=== PATIENT | female | born 1980 | race Caucasian/White ===

== ENCOUNTER → 2018-10-20 11:26 | Outpatient (CLI) | payer BC, SELFPAY ==
[2018-10-20 15:19] LABS: Chlamydia Trachomatis by PCR Negative (Negative); Neisserai gonorrhoeae by PCR Negative (Negative); Probe Check PASS; Sample Adequacy Control PASS; Specimen Processing Control PASS
[2018-10-22 11:30] LABS: HPV Reflexed? NOT INDICATED
== END ==
PROVIDERS: Visit Provider Obstetrics & Gynecology
DX: Z12.4 Encounter for screening for malignant neoplasm of cervix (principal); Z11.3 Encounter for screening for infections with a predominantly sexual mode of transmission
CPT/HCPCS: 87491; 87591; 88175; G0145

== ENCOUNTER → 2018-11-01 11:59 | Outpatient (CLI) | payer BC, SELFPAY ==
[2018-11-01 13:47] LABS: Absolute Lymphocyte Count 1.73 X10^3/ul (0.83-4.51); Absolute Neutrophil Count 5.6 X10^3/uL (2.0-7.7); Basophil# 0.01 X10^3/uL; Basophil% 0.1 % (0-1); Eosinophil# 0.08 X10^3/uL; Hematocrit 37.4 % (37-47); Hemoglobin 12.3 g/dl (12.0-15.0); Lymphocyte # 1.73 X10^3/ul (4.0); Mean Corp Hgb Conc 32.9 g/gl (32-36); Mean Corpuscular Hgb 28.7 pg (27.0-32.0); Mean Corpuscular Volume 87.2 fL (81-99); Mean Platelet Vol. 10.6 fl (6.2-12.0); Monocyte# 0.49 X10^3/uL; Monocyte% 6.2 % (0-10); Neutrophil # 5.55 X10^3/uL (2.7-7.7); Neutrophil % 70.6 % (47-70); POSITIVE COUNT NO; POSITIVE DIFFERENTIAL NO; POSITIVE MORPHOLOGY NO; Platelet Count 215 K/mm3 (150-450); RBC Distribution Width SD 41.3 fl (35.1-43.9); Red Blood Count 4.29 M/mm3 (4.2-5.4); White Blood Count 7.9 K/mm3 (4.4-11.0)
[2018-11-01 13:57] LABS: Color, Urine Yellow (Yellow); Glucose, Dipstick Normal (Normal); Ketone-Dipstick Negative (Negative); Leukocyte Esterase-Dipstick 25 /ul (Negative); Nitrite-Dipstick Negative (Negative); Occult Blood-Urine Negative /ul (Negative); Protein-Dipstick 15 mg/dl (Negative); Specific Gravity, Urine 1.025 (1.002-1.030); Urine Bilirubin Dipstick Negative (Negative); Urine Clarity Sl. Cloudy (Clear); Urine Urobilinogen Normal (Normal)
[2018-11-01 14:03] LABS: Thyroid Stim Hormone (TSH) 1.15 uIU/mL (0.358-3.74)
[2018-11-01 14:35] LABS: Amphetamine Urine VISTA NEGATIVE (<1000 ng/mL); Barbiturate Urine VISTA NEGATIVE (< 200 ng/mL); Benzodiazepine Urine VISTA NEGATIVE (< 200 ng/mL); Cocaine Urine VISTA NEGATIVE (< 300 ng/mL); Ecstacy Urine VISTA NEGATIVE (< 500 ng/mL); Methadone Urine VISTA NEGATIVE (< 300 ng/mL); PCP Urine VISTA NEGATIVE (< 25 ng/mL); THC Urine VISTA NEGATIVE (< 50 ng/mL); Vista UDS pH Range 5
[2018-11-01 14:43] LABS: HIV - WCH Non-Reactive (Nonreactive); Rubella IgG 35.3 IU/mL
[2018-11-02 17:15] LABS: HEPATITIS B SURFACE AG Negative (Negative); Hep C Antibodies <0.1 s/co ratio (0.0-0.9)
[2018-11-05 02:51] LABS: Prenatal RPR NONREACTIVE (NONREACTIVE)
== END ==
PROVIDERS: Visit Provider Obstetrics & Gynecology
DX: Z34.82 Encounter for supervision of other normal pregnancy, second trimester (principal)
CPT/HCPCS: 36415; 80307; 81002; 84443; 85025; 86703; 86762; 86803; 87340

== ENCOUNTER → 2019-01-24 | Outpatient (CLI) | payer BC, SELFPAY ==
[2019-01-24 11:14] LABS: Hematocrit 34.2 % (37-47); Hemoglobin 11.5 g/dl (12.0-15.0); Mean Corp Hgb Conc 33.6 g/gl (32-36); Mean Corpuscular Hgb 30.2 pg (27.0-32.0); Mean Corpuscular Volume 89.8 fL (81-99); Mean Platelet Vol. 10.6 fl (6.2-12.0); Platelet Count 188 K/mm3 (150-450); RBC Distribution Width CV 13.7 % (11.6-14.6); RBC Distribution Width SD 43.8 fl (35.1-43.9); Red Blood Count 3.81 M/mm3 (4.2-5.4); Scan Indicated on CBC? Y/N NO; White Blood Count 9.4 K/mm3 (4.4-11.0)
[2019-01-24 11:37] LABS: Glucose Challenge Gest 1H 50g 133 mg/dL (70-140)
== END | disposition home or self-care (01) ==
PROVIDERS: Visit Provider Obstetrics & Gynecology
DX: Z34.82 Encounter for supervision of other normal pregnancy, second trimester (principal)
CPT/HCPCS: 36415; 82950; 85027

== ENCOUNTER 2019-03-19 16:45 | Outpatient (CLI) | payer BC, SELFPAY ==
[2019-03-19 17:16] VITALS: BMI 35.0
--- NOTE | 2019-03-20 06:39 | OB.TRI.NOTE ---
History of Present Illness Date of Service: 03/19/19 Was patient seen by the physician?: No Reason For Visit: R/O LABOR Date of Service: 03/19/19 Final LEO: 04/18/19 Final LEO Source: US <20 weeks Gestational age: 35 Weeks and 6 Days History of Present Illness: 35+ week intrauterine presents with right lower quadrant and right sided abdominal pain which began earlier in the day. Patient reported some nausea and vomiting and inability to eat. Seem to be out of proportion to right round ligament pain. Allergies shellfish derived Adverse Reaction (Verified 03/19/19 17:57) Food Allergy Physical Exam Cervix Dilation (cm): 0 Station: -2 Effacement (%): 25 NST - FHR Rate Baby A NST Reactive:: Yes FHR Category:: Category I Impression/Plan 35+ week intrauterine with right lower quadrant pain. Reactive heart tones and no evidence of labor. Will send patient to emergency room to rule out appendicitis.
== END 2019-03-19 17:55 | disposition home or self-care (01) ==
PROVIDERS: Visit Provider Obstetrics & Gynecology
DX: O26.893 Other specified pregnancy related conditions, third trimester (principal); R10.31 Right lower quadrant pain; Z3A.35 35 weeks gestation of pregnancy; O99.613 Diseases of the digestive system complicating pregnancy, third trimester; K35.80 Unspecified acute appendicitis
CPT/HCPCS: 44950; 59025; 59050; 74176; 80048; 80076; 81001; 83690; 85025; 88304; 99218; 99285; J7030; J7120; A4216; G0378; J2405

== ENCOUNTER 2019-03-19 17:56 | Observation (INO) | payer BC, SELFPAY ==
[2019-03-19 17:16] VITALS: BMI 35.0
[2019-03-19 17:57] VITALS: BP 106/64; PULSE 105; RESP 18; TEMP 36.3; O2SAT 98; BMI 35.3
[2019-03-19 18:21] LABS: Color, Urine Yellow (Yellow); Glucose, Dipstick Normal (Normal); Leukocyte Esterase-Dipstick 25 /ul (Negative); Nitrite-Dipstick Negative (Negative); Occult Blood-Urine Negative /ul (Negative); Protein-Dipstick Negative (Negative); Red Blood Cells-Urine 0 SEEN /hpf (0-5); Urine Bilirubin Dipstick Negative (Negative); Urine Clarity Sl. Cloudy (Clear); Urine Urobilinogen Normal (Normal)
[2019-03-19 18:23] LABS: Ketone-Dipstick 150 mg/dl (Negative)
[2019-03-19 18:23] LABS: Absolute Lymphocyte Count 1.05 X10^3/uL (0.83-4.51); Absolute Neutrophil Count 10.4 X10^3/uL (2.0-7.7); Basophil# 0.02 X10^3/uL; Basophil% 0.2 % (0-1); Hematocrit 37.3 % (37-47); Hemoglobin 12.5 g/dL (12.0-15.0); Lymphocyte # 1.05 X10^3/ul (4.0); Lymphocyte % 8.7 % (19-41); Mean Corp Hgb Conc 33.5 g/dL (32-36); Mean Corpuscular Hgb 30.6 pg (27.0-32.0); Mean Corpuscular Volume 91.2 fL (81-99); Mean Platelet Vol. 10.8 fl (6.2-12.0); Monocyte# 0.53 X10^3/uL; Monocyte% 4.4 % (0-10); NRBC Flagged by Analyzer 0 % (0-5); Neutrophil # 10.41 X10^3/uL (2.7-7.7); Neutrophil % 86.3 % (47-70); Platelet Count 170 K/mm3 (150-450); RBC Distribution Width SD 42.9 fl (35.1-43.9); Red Blood Count 4.09 M/mm3 (4.2-5.4); White Blood Count 12.1 K/mm3 (4.4-11.0)
--- NOTE | 2019-03-19 18:24 | ED.RN ---
NOTE LEFT ON CHART REFERENCE KETONES IN URINE
[2019-03-19 18:33] LABS: Bacteria RARE /hpf (None Seen); Mucous, Urine RARE /hpf (<or=2+); Squamous Epithelial Cells - UA 0-5 SEEN /hpf (5-10); White Blood Cells 0-5 SEEN /hpf (0-5)
[2019-03-19 18:39] LABS: Anion Gap 8 (5-15); BUN 5 mg/dL (7-18); BUN/Creat Ratio 8.5 RATIO (10-20); Calcium,Total 8.4 mg/dL (8.5-10.1); Chloride 107 mmol/L (98-107); Creatinine, Serum 0.59 mg/dL (0.55-1.02); EST Glomerular Filtration Rate 123 mL/min (>60); Est Glom Filt Rate - Afr Amer 149 mL/min (>60); Glucose 79 mg/dL (74-106); Potassium 3.7 mmol/L (3.5-5.1); Sodium Level 136 mmol/L (136-145)
--- NOTE | 2019-03-19 18:59 | ED.VIS.GEN ---
History of Present Illness Chief Complaint: Abd Pain Informant: Patient Onset: Today Current Severity: Moderate Narrative: Patient is 3 5 weeks uncomplicated no vaginal bleeding or discharge with right-sided abdominal pain which she felt was if she was having contractions, she was seen by the OB triage at [facility] today and sent to the emergency department. She is having contractions but it was felt that these were not related to her pain she is having no vomiting no diarrhea normal bowel bladder habits, she has not been able to eat much today because of the pain, she has no history of abdominal surgeries kidney stones, went to bed feeling fine points to the basically the right side of the abdomen as the area of pain Past Medical History - Allergies and Home Meds Allergies/Adverse Reactions: Allergies shellfish derived Adverse Reaction (Verified 03/19/19 17:57) Food Allergy Past Medical History: - Smoking Status: Never smoker Review of Systems ROS: - Negative except as above General: Denies: Chills, Fever, Sweats Eyes: Denies: Visual changes - bilaterally, Diplopia ENT: Denies: Rhinorrhea, Sore throat Cardiovascular: Denies: Chest pain, Palpitations Respiratory: Denies: Dyspnea, Cough, Dyspnea on exertion Gastrointestinal: Reports: Abdominal pain. Denies: Nausea, Vomiting, Diarrhea, Melena, Hematochezia Genitourinary: Denies: Dysuria, Hematuria, Frequency Musculoskeletal: Denies: Back pain, Extremity Pain Skin: Denies: Rash, Wounds Neurological: Denies: Headache, Weakness, Numbness Physical Exam Vital Signs/Narrative: Vital Signs Temp Pulse Resp BP Pulse Ox 03/19/19 17:57 97.3 F L 105 H 18 106/64 98 General: Well nourished, Well developed, No Acute Distress Head: Normocephalic, Atraumatic Eyes: Perrl, EOMI ENT: Moist mucous membranes, No rhinorrhea Neck: Supple, Nontender Cardiovascular: Regular rate, Regular rhythm, No murmurs Respiratory: No distress, CTA bilaterally, Chest nontender Abdomen: Soft, Nondistended, Normal bowel sounds, Tender, - - She has tenderness to the right side of the abdomen and rather diffuse fashion there is no skin rash there is some guarding but no rebound Back: Nontender, Normal Inspection Extremities: Nontender, No edema Skin: Normal color, No rash Neurological: Alert, Oriented x3, Cranial nerves II-XII grossly intact, Normal Strength, Normal Sensation Psychological: Normal affect, Normal Mood Diagnostic/Tx/Re-eval - Medical Decision Making Spoke with Dr. Ellis her pharmacy operations manager application technical designer discussed case the patient her family this time given her pain her symptoms we will obtain CT of the abdomen to evaluate for appendicitis kidney stone or other acute conditions Lab results UA generally unremarkable see those reports CT scan of the abdomen shows findings consistent with acute appendicitis, I spoke with [facility]ER they asked that I consult Dr. Mcconnell discussed with the patient she agreed spoke with Dr. Mcconnell and he will be in to see the patient for further disposition and management Admit pending surgery eval Impression final 35 weeks , acute appendicitis surgery evaluation ED Disposition - Plan for ED Patient: Diagnosis: Acute appendicitis affecting
--- NOTE | 2019-03-19 19:04 | CT_ITS ---
STUDY: CT ABDOMEN AND PELVIS WITHOUT CONTRAST REASON FOR EXAM: Female, 39 years old. Right-sided abdominal pain with nausea, RADIATION DOSAGE (If Supplied By Facility): CTDIvol = ( 14.31 ) mGy, DLP = ( 665.08 ) mGycm TECHNIQUE: Transaxial images were obtained from the dome of the diaphragm to the symphysis pubis without oral contrast, and without intravenous contrast. Sagittal and coronal images were reconstructed. Individualized dose optimization techniques were used for this CT. COMPARISON: None. FINDINGS: The visualized lung bases are unremarkable. The visualized portions of the heart are within normal limits. Normal liver. Normal gallbladder and extrahepatic biliary system. Normal spleen. Normal pancreas. Normal bilateral adrenal glands. Normal right kidney. Normal left kidney. Normal visualized stomach. Normal small intestine. Normal colon. There is a tubular, thick-walled appendix (9-10 mm) in the right lower quadrant with periappendiceal stranding, consistent with acute appendicitis. Normal abdominal aorta. Normal inferior vena cava. Normal retroperitoneum. Normal urinary bladder. Intrauterine fetus noted. Normal abdominal wall. Normal osseous structures. CT/Abdomen/Pelvis without Cont IMPRESSION: 1. Dilated (9-10 mm) appendix with periappendiceal stranding suggesting appendicitis. 2. Intrauterine fetus. Electronically Signed: Sharad Joaquin MD ([facility]) at 20:19 EDT , Service support ,
[2019-03-19 19:25] LABS: AST(SGOT) 17 U/L (15-37); Alanine Aminotransfer ALT/SGPT 16 U/L (13-56); Albumin, Serum 2.7 g/dL (3.2-5.0); Alkaline Phosphatase 97 U/L (45-117); Bilirubin, Direct 0.12 mg/dL (0.00-0.30); Globulin 4.4 g/dL (2.2-4.2); Lipase 84 U/L (73-393); Protein, Total 7.1 g/dL (6.4-8.2)
[2019-03-19 20:00] VITALS: BP 105/62; PULSE 96; RESP 16; O2SAT 96
[2019-03-19] MEDS: Ondansetron 4 MG/2 ML Vial IV (20:10)
[2019-03-19] MEDS: Acetaminophen 500 MG Tablet 1000 MG PO (20:10)
[2019-03-19 21:03] VITALS: BP 111/74; PULSE 95; RESP 16; TEMP 37.5; O2SAT 95; BMI 35.3
--- NOTE | 2019-03-19 21:13 | PCM.HP.BLA ---
Problem List (1) Acute appendicitis affecting Status: Acute History and Physical Date of Admission: 03/19/19 The patient is a 35 weeks uncomplicated no vaginal bleeding or discharge with right-sided abdominal pain which she felt was if she was having contractions, she was seen by the OB triage at [facility] today and sent to the emergency department. She is having contractions but it was felt that these were not related to her pain she is having no vomiting no diarrhea normal bowel bladder habits, she has not been able to eat much today because of the pain, she has no history of abdominal surgeries kidney stones, went to bed feeling fine points to the basically the right side of the abdomen as the area of pain. Review of the CAT scan it appears that she has acute appendicitis approximately 14 cm superior to the anterior superior iliac spine.
--- NOTE | 2019-03-19 21:19 | PCM.HP.STD ---
Problem List (1) Acute appendicitis affecting Status: Acute History of Present Illness Date of Admission: 03/19/19 The patient is a 35 weeks uncomplicated no vaginal bleeding or discharge with right-sided abdominal pain which she felt was if she was having contractions, she was seen by the OB triage at [facility] today and sent to the emergency department. She is having contractions but it was felt that these were not related to her pain she is having no vomiting no diarrhea normal bowel bladder habits, she has not been able to eat much today because of the pain, she has no history of abdominal surgeries kidney stones, went to bed feeling fine points to the basically the right side of the abdomen as the area of pain. Review of the CAT scan it appears that she has acute appendicitis approximately 14 cm superior to the anterior superior iliac spine. White count is slightly elevated at 12. Past Medical History Allergies shellfish derived Adverse Reaction (Verified 03/19/19 17:57) Food Allergy Home Medications: Ambulatory Orders Medication Instructions Recorded Vits [Prenatabs FA] 1 tablet PO DAILY #30 tablet 07/15/16 Surgical History: no surgical history Smoking Status: Never smoker - *Family History Maternal History Items: No pertinent history Review of Systems Constitutional: Reports: Anorexia, Fever Cardiovascular: Denies: Chest Pain, Chest Pressure, Chest Tightness, Palpitations Respiratory: Denies: Cough, Hemoptysis, Shortness of breath at rest, Shortness of breath upon exertion, Wheezing Gastrointestinal: Reports: Abdominal Pain. Denies: Nausea Genitourinary: Denies: Dysuria, Frequency, Hematuria, Urgency VTE Information - Inpt Only VTE Present on Admission: No VTE Mechan Device Prophylaxis: SCD's VTE Pharm Prophylaxis ordered?: No Reason prophylaxis not ordered:: Treatment Not Indicated Patient Problems: Active and Suspected Problems Acute appendicitis affecting (Acute) - Physical Exam General: Alert, Oriented x3 HEENT: Atraumatic, PERRLA, EOMI, Normocephalic Oral: Moist Mucosa Neck: Supple, No JVD Lungs: Clear to auscultation Cardiovascular: Regular rate Abdomen: Tender - Tenderness is in the right lower quadrant area. She has rebound and peritoneal signs. Extremities: No clubbing, No cyanosis, No edema Vital Signs Temp Pulse Resp BP Pulse Ox 99.5 F H 95 16 111/74 95 03/19/19 21:03 03/19/19 21:03 03/19/19 21:03 03/19/19 21:03 03/19/19 21:03 Oxygen Delivery Method Room Air Weight: 175 lb Body Mass Index (BMI) 35.3 Intake and Output for Last 24 Hours 03/17/19 03/18/19 03/19/19 23:59 23:59 23:59 Intake Total 500 / 500 Balance 500 / 500 Laboratory Tests Past 24 Hrs 03/19/19 03/19/19 03/19/19 18:01 18:10 18:10 WBC 12.1 H RBC 4.09 L Hgb 12.5 Hct 37.3 MCV 91.2 MCH 30.6 MCHC 33.5 RDW Std Deviation 42.9 RDW Coeff of [place] 13.0 Plt Count 170 MPV 10.8 Immature Gran % (Auto) 0.400 Neut % (Auto) 86.3 H Lymph % (Auto) 8.7 L [place] % (Auto) 4.4 Eos % (Auto) 0.0 Baso % (Auto) 0.2 Absolute Neuts (auto) 10.4 H Absolute Lymphs (auto) 1.05 Nucleated RBC % 0 Sodium 136 Potassium 3.7 Chloride 107 Carbon Dioxide 21.0 Anion Gap 8 BUN 5 L Creatinine 0.59 Estim Creat Clear Calc 163.60 Est GFR (MDRD) Af Amer 149 Est GFR (MDRD) Non-Af 123 BUN/Creatinine Ratio 8.5 L Glucose 79 Calcium 8.4 L Total Bilirubin Direct Bilirubin AST ALT Alkaline Phosphatase Total Protein Albumin Globulin Lipase Urine Color Yellow Urine Clarity Sl. Cloudy Urine pH 7.0 Ur Specific [place] 1.010 Urine Protein Negative Urine Glucose (UA) Normal Urine Ketones 150 H Urine Occult Blood Negative Urine Nitrite Negative Urine Bilirubin Negative Urine Urobilinogen Normal Ur Leukocyte Esterase 25 H Urine RBC 0 SEEN Urine WBC 0-5 SEEN Ur Squamous Epith Cells 0-5 SEEN Urine Bacteria RARE Urine Mucus RARE 03/19/19 03/19/19 18:10 18:10 WBC RBC Hgb Hct MCV MCH MCHC RDW Std Deviation RDW Coeff of Carolyne Plt Count MPV Immature Gran % (Auto) Neut % (Auto) Lymph % (Auto) [place] % (Auto) Eos % (Auto) Baso % (Auto) Absolute Neuts (auto) Absolute Lymphs (auto) Nucleated RBC % Sodium Potassium Chloride Carbon Dioxide Anion Gap BUN Creatinine Estim Creat Clear Calc Est GFR (MDRD) Af Amer Est GFR (MDRD) Non-Af BUN/Creatinine Ratio Glucose Calcium Total Bilirubin 0.30 Direct Bilirubin 0.12 AST 17 ALT 16 Alkaline Phosphatase 97 Total Protein 7.1 Albumin 2.7 L Globulin 4.4 H Lipase 84 Urine Color Urine Clarity Urine pH Ur Specific [place] Urine Protein Urine Glucose (UA) Urine Ketones Urine Occult Blood Urine Nitrite Urine Bilirubin Urine Urobilinogen Ur Leukocyte Esterase Urine RBC Urine WBC Ur Squamous Epith Cells Urine Bacteria Urine Mucus Assessment/Plan All Active Problems Acute appendicitis affecting (Acute) My plan is to perform an open appendectomy. I discussed with her the fact that she could go into labor and start to delivery. I also discussed the fact that she could lose her baby. Although this would be highly unlikely. It is clear based upon her physical exam and the CAT scan she has appendicitis. And really we have no choice but to perform an open appendectomy on her. In addition she understands that she could have some postoperative bleeding postoperative infections. She also understands that blood clots heart attacks and pneumonia strokes are also a possibility although highly unlikely given her age. Postoperatively we will monitor the baby and monitor her to make sure that if she does go into early labor Dr. Ellis will be notified. Patient and the mother had ample opportunity to ask questions all of her questions were answered and they are willing to proceed.
[2019-03-19] MEDS: Bupivacaine Mpf 0.5% 30 ML VIAL (22:00)
--- NOTE | 2019-03-19 22:54 | PCM.OPRPT ---
Problem List (1) Acute appendicitis affecting Status: Acute Report of Operation Date of Procedure: 03/19/19 Pre-Operative Diagnosis: Acute appendicitis 35 weeks Post-Operative Diagnosis: Same Surgery/Procedure Performed:: Open appendectomy Type of Anesthesia:: General Anesthesiologist: Jm Ellis Specimen's removed: Appendix Drains: None Estimated Blood Loss (mL): < 25 CC Fluids Replaced: 400 CC Description of Procedure: Patient was brought to the operating room. Placed in the supine position. Under excellent general endotracheal intubation the abdomen was sterilely prepped and draped in usual fashion. Right lower quadrant incision was made slightly above where McBurney's point was. Letter cautery was used to the subcutaneous tissues and the trocar was used to open the anterior fascia. I displayed the rectus abdominis muscle medially grabbed the posterior fascia between Kellys at this with a knife used electrocautery to extend the posterior fascia from medial to lateral. Dissected down grabbed the cecum brought up acutely inflamed appendix. Window was created in the mesial appendix and transected the appendix with a 55 linear cutter. I came down across the mesoappendix with the harmonic dissector. I had excellent hemostasis. I irrigated out the abdomen with a liter of warm irrigation. Irrigant was clear. Closed the posterior fascia with 0 Vicryl. Closed anterior fascia with 0 Vicryl. I irrigated the subcu. Subcu was brought together in layers. Deep layer 0 Vicryl deep dermal stitches of 3-0 Vicryl and running 4-0 Monocryl. Steri-Strips were applied sterile dressings were applied and the patient tolerated the procedure well. Patient will be transferred to the PACU where we will start monitoring the fetus and then be transferred to the OB unit for further monitoring. - Admit VTE Documentation VTE Present on Admission: No VTE Mechan Device Prophylaxis: SCD's VTE Pharm Prophylaxis ordered?: No Reason prophylaxis not ordered:: Treatment Not Indicated
--- NOTE | 2019-03-19 23:15 | APP_PTH ---
PATIENT: OMAR HAGAN LOC: WP U#:[id number] AGE/SX: 39/F ROOM: WP011 RE03/19/[address]: Dr. Nikhil Mcconnell MD : 1980 BED: 1 DIS: 03/22/2019 SPEC #: [id number] RECD: 03/21/19 08:42 STATUS: [place] #: [id number] KRANTHI: 03/19/19 23:[address]: Nikhil Mcconnell DEPT: SURGICAL PATHOLOGY RECD BY: Edilberto Reynoso ENTERED: 03/21/19 09:35 SP TYPE: APPENDIX OTHR DR: Dr. Suhail Mckeon MD Tissues: Appendix, NOS Procedures: Surgery Specimen Level III HEADER OPERATION: Appendectomy PRE-OP DIAGNOSIS: Acute appendicitis TISSUE SUBMITTED: Appendix MICROSCOPIC DIAGNOSIS Appendix, appendectomy: Acute necrotizing appendicitis. Acute serositis. AM:enoch 03/22/19 MICROSCOPIC DESCRIPTION Slides are reviewed. GROSS DESCRIPTION Received is one container labeled with the patient's name and designated appendix. The specimen consists of an appendix measuring 7.5 cm in length and up to 0.5 cm in diameter. The attached periappendiceal adipose tissue measures up to 2.5 cm in width. The serosa is congested. No obvious perforation is identified. The lumen does not contain any fecalith. Windows Application Packager sections are submitted in one cassette. / SJ:rg 03/21/19 TC:[address] [facility]: [id number]
[2019-03-19 23:16] VITALS: BP 111/74; BP 98/65; PULSE 85; RESP 16; TEMP 37.2; O2SAT 100
[2019-03-19 23:29] VITALS: BMI 35.1
[2019-03-19 23:30] VITALS: BP 104/76; BP 111/74; PULSE 80; RESP 16; O2SAT 100
[2019-03-19] MEDS: Lactated Ringers 1,000 ML 100 ML IV (23:32)
[2019-03-19 23:48] VITALS: BP 107/74; BP 111/74; PULSE 83; RESP 16; TEMP 37.2; O2SAT 100
[2019-03-20] VITALS (10 sets, daily range): BP systolic 89–102; BP diastolic 54–64; PULSE 67–84; RESP 16–18; TEMP 36.6–37.6; O2SAT 97–98
[2019-03-20] MEDS: Lactated Ringers 1,000 ML 100 ML IV (00:24)
[2019-03-20] MEDS: Morphine 2 MG/ML Syringe IV ×2 (00:54→05:39)
[2019-03-20] MEDS: Acetaminophen 500 MG Tablet PO ×3 (04:12→18:46)
[2019-03-20] MEDS: Dextrose 5%-Lactated Ringers 1,000 ML 60 ML IV (04:15)
--- NOTE | 2019-03-20 06:35 | PCM.PN.OB ---
Patient Problems: Active and Suspected Problems Acute appendicitis affecting (Acute) Subjective: Patient with occasional contraction just after surgery last evening but subsided. Pain well controlled. Patient actually feeling better since the surgery. - Physical Exam Vital Signs Temp Pulse Resp BP Pulse Ox 99.0 F 83 16 107/74 100 03/19/19 23:48 03/19/19 23:48 03/19/19 23:48 03/19/19 23:48 03/19/19 23:48 Oxygen Delivery Method Room Air Weight: 174 lb Body Mass Index (BMI) 35.1 Intake and Output for Last 24 Hours 03/18/19 03/19/19 03/20/19 23:59 23:59 23:59 Intake Total 1600 / 1600 562.34 / 562.34 Balance 1600 / 1600 562.34 / 562.34 Laboratory Tests Past 24 Hrs 03/19/19 03/19/19 03/19/19 18:01 18:10 18:10 WBC 12.1 H RBC 4.09 L Hgb 12.5 Hct 37.3 MCV 91.2 MCH 30.6 MCHC 33.5 RDW Std Deviation 42.9 RDW Coeff of Carolyne 13.0 Plt Count 170 MPV 10.8 Immature Gran % (Auto) 0.400 Neut % (Auto) 86.3 H Lymph % (Auto) 8.7 L [place] % (Auto) 4.4 Eos % (Auto) 0.0 Baso % (Auto) 0.2 Absolute Neuts (auto) 10.4 H Absolute Lymphs (auto) 1.05 Nucleated RBC % 0 Sodium 136 Potassium 3.7 Chloride 107 Carbon Dioxide 21.0 Anion Gap 8 BUN 5 L Creatinine 0.59 Estim Creat Clear Calc 163.60 Est GFR (MDRD) Af Amer 149 Est GFR (MDRD) Non-Af 123 BUN/Creatinine Ratio 8.5 L Glucose 79 Calcium 8.4 L Total Bilirubin Direct Bilirubin AST ALT Alkaline Phosphatase Total Protein Albumin Globulin Lipase Urine Color Yellow Urine Clarity Sl. Cloudy Urine pH 7.0 Ur Specific [place] 1.010 Urine Protein Negative Urine Glucose (UA) Normal Urine Ketones 150 H Urine Occult Blood Negative Urine Nitrite Negative Urine Bilirubin Negative Urine Urobilinogen Normal Ur Leukocyte Esterase 25 H Urine RBC 0 SEEN Urine WBC 0-5 SEEN Ur Squamous Epith Cells 0-5 SEEN Urine Bacteria RARE Urine Mucus RARE 03/19/19 03/19/19 18:10 18:10 WBC RBC Hgb Hct MCV MCH MCHC RDW Std Deviation RDW Coeff of Carolyne Plt Count MPV Immature Gran % (Auto) Neut % (Auto) Lymph % (Auto) [place] % (Auto) Eos % (Auto) Baso % (Auto) Absolute Neuts (auto) Absolute Lymphs (auto) Nucleated RBC % Sodium Potassium Chloride Carbon Dioxide Anion Gap BUN Creatinine Estim Creat Clear Calc Est GFR (MDRD) Af Amer Est GFR (MDRD) Non-Af BUN/Creatinine Ratio Glucose Calcium Total Bilirubin 0.30 Direct Bilirubin 0.12 AST 17 ALT 16 Alkaline Phosphatase 97 Total Protein 7.1 Albumin 2.7 L Globulin 4.4 H Lipase 84 Urine Color Urine Clarity Urine pH Ur Specific [place] Urine Protein Urine Glucose (UA) Urine Ketones Urine Occult Blood Urine Nitrite Urine Bilirubin Urine Urobilinogen Ur Leukocyte Esterase Urine RBC Urine WBC Ur Squamous Epith Cells Urine Bacteria Urine Mucus Medical Necessity - Tobacco Use Smoking Status: Never smoker Assessment/Plan All Active Problems Acute appendicitis affecting (Acute) 35+ weeks gestation with acute appendicitis status post laparotomy and appendectomy of nonruptured appendix. Minimal uterine irritability this morning and reactive heart tones overnight. Anticipate that Dr. Mcconnell will release patient this morning to home. Plan to see patient back for routine visit later this week.
[2019-03-20] MEDS: oxyCODONE 5 MG Tablet PO ×4 (06:56→22:26)
--- NOTE | 2019-03-20 10:29 | PN.SURG_ITS ---
Patient Problems: Active and Suspected Problems Acute appendicitis affecting (Acute) Subjective: Patient's pain has improved. She has had very little flatus and no bowel movements as of yet. Objective: Dressing is dry pain in the right lower quadrant has improved and his change to incisional type pain - Physical Exam Vital Signs Temp Pulse Resp BP Pulse Ox 98.2 F 81 18 92/59 L 98 03/20/19 07:25 03/20/19 07:25 03/20/19 07:25 03/20/19 07:25 03/20/19 07:25 Oxygen Delivery Method Room Air Weight: 174 lb Body Mass Index (BMI) 35.1 Intake and Output for Last 24 Hours 03/18/19 03/19/19 03/20/19 23:59 23:59 23:59 Intake Total 1600 / 1600 562.34 / 562.34 Balance 1600 / 1600 562.34 / 562.34 Laboratory Tests Past 24 Hrs 03/19/19 03/19/19 03/19/19 18:01 18:10 18:10 WBC 12.1 H RBC 4.09 L Hgb 12.5 Hct 37.3 MCV 91.2 MCH 30.6 MCHC 33.5 RDW Std Deviation 42.9 RDW Coeff of [place] 13.0 Plt Count 170 MPV 10.8 Immature Gran % (Auto) 0.400 Neut % (Auto) 86.3 H Lymph % (Auto) 8.7 L [place] % (Auto) 4.4 Eos % (Auto) 0.0 Baso % (Auto) 0.2 Absolute Neuts (auto) 10.4 H Absolute Lymphs (auto) 1.05 Nucleated RBC % 0 Sodium 136 Potassium 3.7 Chloride 107 Carbon Dioxide 21.0 Anion Gap 8 BUN 5 L Creatinine 0.59 Estim Creat Clear Calc 163.60 Est GFR (MDRD) Af Amer 149 Est GFR (MDRD) Non-Af 123 BUN/Creatinine Ratio 8.5 L Glucose 79 Calcium 8.4 L Total Bilirubin Direct Bilirubin AST ALT Alkaline Phosphatase Total Protein Albumin Globulin Lipase Urine Color Yellow Urine Clarity Sl. Cloudy Urine pH 7.0 Ur Specific [place] 1.010 Urine Protein Negative Urine Glucose (UA) Normal Urine Ketones 150 H Urine Occult Blood Negative Urine Nitrite Negative Urine Bilirubin Negative Urine Urobilinogen Normal Ur Leukocyte Esterase 25 H Urine RBC 0 SEEN Urine WBC 0-5 SEEN Ur Squamous Epith Cells 0-5 SEEN Urine Bacteria RARE Urine Mucus RARE 03/19/19 03/19/19 18:10 18:10 WBC RBC Hgb Hct MCV MCH MCHC RDW Std Deviation RDW Coeff of Carolyne Plt Count MPV Immature Gran % (Auto) Neut % (Auto) Lymph % (Auto) [place] % (Auto) Eos % (Auto) Baso % (Auto) Absolute Neuts (auto) Absolute Lymphs (auto) Nucleated RBC % Sodium Potassium Chloride Carbon Dioxide Anion Gap BUN Creatinine Estim Creat Clear Calc Est GFR (MDRD) Af Amer Est GFR (MDRD) Non-Af BUN/Creatinine Ratio Glucose Calcium Total Bilirubin 0.30 Direct Bilirubin 0.12 AST 17 ALT 16 Alkaline Phosphatase 97 Total Protein 7.1 Albumin 2.7 L Globulin 4.4 H Lipase 84 Urine Color Urine Clarity Urine pH Ur Specific [place] Urine Protein Urine Glucose (UA) Urine Ketones Urine Occult Blood Urine Nitrite Urine Bilirubin Urine Urobilinogen Ur Leukocyte Esterase Urine RBC Urine WBC Ur Squamous Epith Cells Urine Bacteria Urine Mucus Medical Necessity - Tobacco Use Smoking Status: Never smoker Assessment/Plan All Active Problems Acute appendicitis affecting (Acute) Stop day #1 Patient is doing well postoperatively would like to see her have a little bit better bowel function more likely will need to stay 1 more day for IV antibiotics.
--- NOTE | 2019-03-20 21:15 | NURSING ---
1942 - placed on toco and for NST after returning to bed from bathroom. FHR BL 145 - had 5 min deceleration with FHR ranging from 80-135 at 1951 and variable at 2103. Dr Ellis notified and he viewed tracing while on unit. No new orders.
[2019-03-21] VITALS: BP 107/71; PULSE 85; RESP 16; TEMP 37.3
[2019-03-21] MEDS: Acetaminophen 500 MG Tablet PO ×3 (01:05→22:22)
[2019-03-21 04:00] VITALS: BP 111/61; PULSE 86; RESP 18; TEMP 36.8
[2019-03-21] MEDS: oxyCODONE 5 MG Tablet PO ×4 (06:32→23:26)
[2019-03-21 08:00] VITALS: BP 103/68; PULSE 70; RESP 16; TEMP 36.8; O2SAT 97
--- NOTE | 2019-03-21 10:51 | PCM.PN.SRG ---
Patient Problems: Active and Suspected Problems Acute appendicitis affecting (Acute) Subjective: Patient evaluated this morning. She noted overnight she changed positions and was very painful at the incision site. She denies flatus or BM. She is tolerating a diet well. - Physical Exam General: Alert, Oriented x3, Cooperative Abdomen: Soft, Non Tender, Gravid, - - RLQ- incision c/d/i. No erythema or infection noted Vital Signs Temp Pulse Resp BP Pulse Ox 98.2 F 86 18 111/61 97 03/21/19 04:00 03/21/19 04:00 03/21/19 04:00 03/21/19 04:00 03/20/19 13:58 Oxygen Delivery Method Room Air Weight: 174 lb Body Mass Index (BMI) 35.1 Intake and Output for Last 24 Hours 03/19/19 03/20/19 03/21/19 23:59 23:59 23:59 Intake Total 1600 / 1600 1423.34 / 1423.34 1498 / 1498 Output Total 550 / 550 900 / 900 Balance 1600 / 1600 873.34 / 873.34 598 / 598 Medical Necessity - Tobacco Use Smoking Status: Never smoker Assessment/Plan All Active Problems Acute appendicitis affecting (Acute) I am following this patient in conjunction with Dr. Mcconnell S/p appendectomy Continue IV antibiotics Await until patient passing flatus prior to discharge Hopeful discharge today Code Visit Inpatient E&M: 34608 Subs Hosp L1 - No charge
--- NOTE | 2019-03-21 10:57 | PCM.DC.APPY ---
Discharge Diet: Light diet - advance as tolerated Discharge Activity: May Not Drive - for 3-5 days or while taking narcotic pain meds. May shower in (days): 1 Call your doctor if your incision/area has: Continuous Slow Oozing, Sudden Increased Bleeding, Increased Pain/ Swelling, Increased Redness, Foul Smelling Discharge Call your doctor if you observe: Fever of 101 or Higher Suture Line Care: Avoid Pulling/Pushing, Avoid Pinching/Bending Additional Dressing/Incision Instructions:: Keep dressing clean and dry. Change or remove dressing in 2 days. Leave steri strips for 1 week. May protect with a gauze bandaid. Medications to take at Discharge Vits [Prenatabs FA ] 1 tablet PO DAILY #30 tablet 07/15/16 Oxycodone [Oxyir] 5 mg PO Q4H PRN PRN 3 Days #10 tablet 03/21/19 Allergies/Adverse Reactions: Allergies shellfish derived Adverse Reaction (Verified 03/19/19 17:57) Food Allergy The following prescriptions were given: Oxycodone [Oxyir] 5 mg PO Q4H PRN PRN 3 Days #10 tablet PRN Reason: Severe Pain (-04/21) Transmission Status: Sent to [facility] Primary Care Physician: Suhail Mckeon MD [Primary Care Provider] - Test Results: Test results from this visit will be discussed in further detail at your follow-up appointment, if applicable. Please Follow Up With: Karon Mckeon PA-C - [phone] When: 10 days
[2019-03-21 12:00] VITALS: BP 155/76; PULSE 100; RESP 18; TEMP 36.8
[2019-03-21] MEDS: Dextrose 5%-Lactated Ringers 1,000 ML 60 ML IV (12:59)
[2019-03-21 16:39] VITALS: BP 123/75; PULSE 86; RESP 18; TEMP 37.1
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
[2019-03-21 21:00] VITALS: BP 122/68; PULSE 85; RESP 18; TEMP 36.6; O2SAT 99
[2019-03-22 00:30] VITALS: BP 108/66; PULSE 90; RESP 18; TEMP 36.3; O2SAT 99
[2019-03-22] MEDS: Acetaminophen 500 MG Tablet PO ×2 (04:47→12:11)
[2019-03-22 04:55] VITALS: BP 111/68; PULSE 81; RESP 18; TEMP 36.4; O2SAT 99
--- NOTE | 2019-03-22 08:08 | PCM.PN.SRG ---
Patient Problems: Active and Suspected Problems Acute appendicitis affecting (Acute) Subjective: Patient evaluated resting comfortably in bed. She notes improvement with incisional discomfort. She denies nausea, vomiting. She denies flatus and BM. - Physical Exam General: Alert, Oriented x3, Cooperative Abdomen: Non Tender, Gravid, Hypoactive Bowel Sounds, - - Incision c/d/i. No erythema or infection noted. Op-site removed today. Vital Signs Temp Pulse Resp BP Pulse Ox 97.5 F L 81 18 111/68 99 03/22/19 04:55 03/22/19 04:55 03/22/19 04:55 03/22/19 04:55 03/22/19 04:55 Oxygen Delivery Method Room Air Weight: 174 lb Body Mass Index (BMI) 35.1 Intake and Output for Last 24 Hours 03/20/19 03/21/19 03/22/19 23:59 23:59 23:59 Intake Total 1423.34 / 1423.34 2607 / 2607 748 / 748 Output Total 550 / 550 2250 / 2250 100 / 100 Balance 873.34 / 873.34 357 / 357 648 / 648 Medical Necessity - Tobacco Use Smoking Status: Never smoker Assessment/Plan All Active Problems Acute appendicitis affecting (Acute) I am following this patient in conjunction with Dr. Mcconnell S/p appendectomy Continue IV antibiotics Milk of magnesia ordered Await until patient passing flatus prior to discharge Hopeful discharge today Code Visit Inpatient E&M: 42565 Subs Hosp L1 - No charge post-op
[2019-03-22] MEDS: oxyCODONE 5 MG Tablet PO (09:17)
[2019-03-22 09:21] VITALS: BP 104/70; PULSE 70; RESP 18; TEMP 36.3; O2SAT 99
--- NOTE | 2019-03-22 10:08 | DS.PCM_ITS ---
Discharge Date and Diagnosis - Problem List Patient Problems: Active and Suspected Problems Acute appendicitis affecting (Acute) Date of Admission: 03/19/19 Date of Discharge: 03/22/19 - Primary Discharge Diagnosis Active and Suspected Problems Acute appendicitis affecting (Acute) Hospital Course and Treatment Operations: appendectomy Summary of Care Provided: The patient is a 39 year old F who presented with right lower quadrant pain. CT scan of ab/pel scan confirmed acute appendicitis. Patient is approximately [address] Mcconnell performed an open appendectomy on 03/19/2019. Patient tolerated the procedure well. [facility] where the fetus was monitored. Fetus has good heart tones. She has been monitored by Dr. Ellis, OB. Upon discharge, patient has passed flatus. She is tolerating a regular diet. She notes incisional discomfort has improved. She will follow-up in 7-10 days from discharge. She denies nausea, vomiting, fever. Patient Problems: Active and Suspected Problems Acute appendicitis affecting (Acute) - Physical Exam General: Alert, Oriented x3, Cooperative Abdomen: Soft, Non Tender, Gravid, Hypoactive Bowel Sounds, - - RLQ incision- c/d/i. No erythema or infection noted. No drainage noted. Vital Signs Temp Pulse Resp BP Pulse Ox 97.4 F L 70 18 104/70 99 03/22/19 09:21 03/22/19 09:21 03/22/19 09:21 03/22/19 09:21 03/22/19 09:21 Oxygen Delivery Method Room Air Weight: 174 lb Body Mass Index (BMI) 35.1 Intake and Output for Last 24 Hours 03/20/19 03/21/19 03/22/19 23:59 23:59 23:59 Intake Total 1423.34 / 1423.34 2607 / 2607 748 / 748 Output Total 550 / 550 2250 / 2250 100 / 100 Balance 873.34 / 873.34 357 / 357 648 / 648 Discharge Diet: Light diet - advance as tolerated Discharge Activity: May Not Drive - for 3-5 days or while taking narcotic pain meds. May shower in (days): 1 Call your doctor if your incision/area has: Continuous Slow Oozing, Sudden Increased Bleeding, Increased Pain/ Swelling, Increased Redness, Foul Smelling Discharge Call your doctor if you observe: Fever of 101 or Higher Suture Line Care: Avoid Pulling/Pushing, Avoid Pinching/Bending Additional Dressing/Incision Instructions:: Keep dressing clean and dry. Change or remove dressing in 2 days. Leave steri strips for 1 week. May protect with a gauze bandaid. Home Medications: Medications to take at Discharge Vits [Prenatabs FA ] 1 tablet PO DAILY #30 tablet 07/15/16 Oxycodone [Oxyir] 5 mg PO Q4H PRN PRN 3 Days #10 tab 03/21/19 Following Prescrptions Were Given to Patient: Oxycodone [Oxyir] 5 mg PO Q4H PRN PRN 3 Days #10 tab PRN Reason: Severe Pain (-04/21) Transmission Status: Received by [facility] Primary Care Physician: Suhail Mckeon MD [Primary Care Provider] - Please Follow Up With: Karon Mckeon PA-C - [phone] When: 10 days Disposition: Home Minutes spent on discharge:: 20 Patient Condition:: Stable Medical Necessity - Tobacco Use Smoking Status: Never smoker Meaningful Use Info Meaningful Use Diagnoses (Choose all that apply): None applicable Code Visit Inpatient E&M: 12408 Disch Hosp - No charge
--- NOTE | 2019-03-22 10:08 | NUR.TO.PHY ---
Flatus noted by pt; hypoactive BS.
[2019-03-22 12:19] VITALS: PULSE 70; RESP 18; TEMP 36.3; O2SAT 99
== END 2019-03-22 12:10 | disposition home or self-care (01) ==
LOC: ED 19:06 → SDC 21:20 → WP 23:20
PROVIDERS: Admitting Provider Surgery; Emergency Provider Emergency Medicine; Family Provider Family Medicine; PCP Family Medicine; Visit Provider Surgery
PROC: (CPT 44950; principal; 2019-03-19 23:00)
DX: O99.613 Diseases of the digestive system complicating pregnancy, third trimester (principal); K35.80 Unspecified acute appendicitis; Z3A.35 35 weeks gestation of pregnancy
CPT/HCPCS: 00840; 44950; 96361 ×2; 96365; 96366 ×4; 96375 ×2; 96376; 59025; 59050; 74176; 80048; 80076; 81001; 83690; 85025; 88304; 99218; 99285; J7030; J7120; A4216; G0378; J2405

== ENCOUNTER → 2019-03-30 11:34 | Outpatient (CLI) | payer BC, SELFPAY ==
[2019-03-19 23:29] VITALS: BMI 35.1
== END ==
PROVIDERS: Visit Provider Obstetrics & Gynecology
DX: Z36.85 Encounter for antenatal screening for Streptococcus B (principal)
CPT/HCPCS: 87081

== ENCOUNTER 2019-04-04 05:45 | Inpatient (IN) | payer BC, SELFPAY ==
[2019-04-04] MEDS: Lactated Ringers 1,000 ML 50 ML IV (06:25)
[2019-04-04 06:39] VITALS: BMI 34.7
[2019-04-04 06:49] LABS: ROM Internal Control Test YES-OK TO RESULT pt. (Internal QC); ROM Patient Test POSITIVE (Negative); Record Kit Lot#, ROM+ J8255
[2019-04-04 07:23] LABS: Absolute Lymphocyte Count 1.93 X10^3/uL (0.83-4.51); Absolute Neutrophil Count 6.1 X10^3/uL (2.0-7.7); Basophil# 0.02 X10^3/uL; Basophil% 0.2 % (0-1); Eosinophil# 0.06 X10^3/uL; Eosinophils% 0.7 % (0-5); Hematocrit 36.1 % (37-47); Hemoglobin 11.9 g/dL (12.0-15.0); Lymphocyte # 1.93 X10^3/ul (4.0); Lymphocyte % 22.1 % (19-41); Mean Corpuscular Hgb 30.4 pg (27.0-32.0); Mean Corpuscular Volume 92.1 fL (81-99); Mean Platelet Vol. 11.2 fl (6.2-12.0); Monocyte# 0.62 X10^3/uL; Monocyte% 7.1 % (0-10); NRBC Flagged by Analyzer 0 % (0-5); Neutrophil # 6.08 X10^3/uL (2.7-7.7); Neutrophil % 69.4 % (47-70); Platelet Count 234 K/mm3 (150-450); RBC Distribution Width CV 13.1 % (11.6-14.6); RBC Distribution Width SD 43.5 fl (35.1-43.9); Red Blood Count 3.92 M/mm3 (4.2-5.4); White Blood Count 8.8 K/mm3 (4.4-11.0)
[2019-04-04] MEDS: Lactated Ringers 500 ML 999 ML IV (07:56)
[2019-04-04] MEDS: Oxytocin 30 units/NS 500 ml 30 UNITS/500 ML IV.SOLN IV (07:57)
--- NOTE | 2019-04-04 08:33 | PCM.HP.BLA ---
History and Physical Date of Admission: 04/04/19 Date: 10/20/2018 Name: OMAR HAGAN Age: 38 Date of : 1980 HISTORY OF PRESENT ILLNESS: Coni is a 38 yo admited at 37w3d gestation w/co leaking of clear fluid since 429; she reports active FM, denies VB, and is feeling sporadic, mild contractions ALLERGIES: Selfish MEDICATIONS HISTORY: Current medications prescribed by our practice are: 1. PNV 28mg-Iron 800mcg, 1 po QD REVIEW OF SYSTEMS: GENERAL - Denies fever, or chills SKIN - Denies skin changes EYES - Denies visual changes EARS - Denies difficulty hearing NOSE - Denies nasal congestion or bleeding MOUTH - Denies sore throat or difficulty swallowing NECK - Denies pain or swelling RESPIRATORY - Denies shortness of breath or wheezing CARDIOVASCULAR - Denies palpitations or chest pain GASTROINTESTINAL - Denies nausea, vomiting, diarrhea, constipation GENITOURINARY - Denies dysuria, frequency of urination, incontinence of urine MUSCULOSKELETAL - Denies joint or muscle pain NEUROLOGICAL - Denies localized numbness or weakness PSYCHIATRIC - Denies depression or anxiety ENDOCRINE - Denies heat or cold intolerance, weight loss or gain HEMATO-IMMUNOLOGIC - Denies excesive bleeding with cuts SURGICAL HISTORY: 1. 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 Exercise - minimal Seat Belt Use - always Employer - Sales Representative Education Courses Job Description - [employer] Illicit Drug Use - denies use of street drugs Sexual Activity - Residence - lives with Place of - [place], [place] Hours Worked - 36 hours a week Spouse-Sig Other Name - Johan Hagan Spouse-Sig Other Occupation - [employer], soon to be changing jobs Spouse-Sig Other Phone No - [phone] Children Name(s) - Lolly Fontenot (JMW), Fabio Ranjit (DS) Control - PHYSICAL EXAMINATION AVSS FHTs: 145 baseline, moderate variability, no accels, no decels UCs: Q 2-4 minutes ROM Plus positive per RN CONSTITUTIONAL - NAD, well nourished, and well developed HEENT - Normocephalic, PERRLA, EOMI NECK - no nuchal rigidity LUNGS - clear to auscultation CARDIAC - normal s1, normal s2, no s3 BREAST - no dominant masses, no tenderness, no axillary adenopathy, no nipple discharge and no skin changes ABDOMEN - Enlarged uterus with FHT in 150s by DT. EXTREMITIES - No edema or calf tenderness NEUROLOGICAL - Cranial nerves II-XII grossly intact PSYCHIATRIC - A and O to time, place, person, mood and affect PAP SMEAR - done and GC and Chlamydia done DETAILED PELVIC EXAM External Genitial Vagina - non-tender without lesions Urethra/Urethral Meatus - non-tender Bladder - non-tender Vagina - no palpable lesions, no foreign bodies Cervix - no CMT; 2/50/-3 per RN, grossly ruptured Uterus - Gravid ASSESSMENT: IUP @ 37w3d with PROM x 3-plus hours Group B negative Cat 1 FHTs Inadequate contraction pattern PLAN: Admit to inpatient Discuss benefits/risks of augmentation of labor with patient . Pitocin augmentation with IUPC if patient agrees .
--- NOTE | 2019-04-04 08:47 | PCM.PN.OB ---
Subjective: This is a late entry for 04/04/2019, 0800 Feeling contractions sporadically, rating pain 3/10 Objective: AVSS FHTs: 145 baseline, moderate variability, no accels, no decels UCs: Q 2-4 minutes VE: 3/80/-2 - Physical Exam General: Alert, Oriented x3, Cooperative, No apparent distress HEENT: PERRLA, EOMI Oral: Moist Mucosa Neck: Supple Lungs: Clear to auscultation, Normal air movement Cardiovascular: Regular rate, Regular Rhythm Abdomen: Bowel Sounds Present, Soft, Non Tender, Gravid Extremities: No edema, Capillary Refill Less than 3 Seconds, No Calf Tenderness Skin: Incision - LRQ incision from appendectomy two weeks ago clean, dry, well approximated with steri-strips, no drainage, edema or erythema Musculoskeletal: No Tenderness to Palpation of Joints or Extremities Lymphatic: No Cervical, Supraclavicular, or Inguinal Adenopathy Neurological: Cranial nerves II-XII grossly intact, Deep Tendon Reflexes 2+/4 and Symmetrical Psych/Mental Status: Normal Affect, Appropriate, Alert and oriented to time, place, person, mood and affect Weight: 172 lb 2.896 oz Body Mass Index (BMI) 34.7 Intake and Output for Last 24 Hours 04/02/19 04/03/19 04/04/19 23:59 23:59 23:59 Intake Total 575.83 / 575.83 Balance 575.83 / 575.83 Laboratory Tests Past 24 Hrs 04/04/19 04/04/19 04/04/19 06:10 06:25 06:25 WBC 8.8 RBC 3.92 L Hgb 11.9 L Hct 36.1 L MCV 92.1 MCH 30.4 MCHC 33.0 RDW Std Deviation 43.5 RDW Coeff of Carolyne 13.1 Plt Count 234 MPV 11.2 Immature Gran % (Auto) 0.500 Neut % (Auto) 69.4 Lymph % (Auto) 22.1 [place] % (Auto) 7.1 Eos % (Auto) 0.7 Baso % (Auto) 0.2 Absolute Neuts (auto) 6.1 Absolute Lymphs (auto) 1.93 Nucleated RBC % 0 Vag Amniotic Fld Detect POSITIVE H Blood Type B POSITIVE Antibody Screen NEGATIVE Medical Necessity - Tobacco Use Smoking Status: Never smoker Assessment/Plan All Active Problems Acute appendicitis affecting (Acute) Assessment: IUP @ 37w3d, PROM x 3.5 hours S/P appendectomy x 2 weeks GBS Negative Cat 1 FHTs Inadequate contraction pattern Plan: Discussed risks, benefits of augmentation of labor with patient, she agree to augmentation of labor with pitocin IUPC placed per Dr. Ellis Continuous EFM Begin titrating pitocin to achieve adequate labor Anticipate vaginal
[2019-04-04] MEDS: fentaNYL-bupivacaine (epidural) 100 ML BAG EPIDURAL ×2 (09:03→13:12)
[2019-04-04] MEDS: Lactated Ringers 1,000 ML 200 ML IV (12:24)
--- NOTE | 2019-04-04 12:44 | PCM.PN.BLA ---
Progress Note Labor SROM 37 3/7 wk EGA SROM at 0430 am comfortable w/ epidural AVSS Pitocin at 4 mIU/min EFM 120-130s avg variability. Accels. UCs q 2-3 mins. Some coupling and spacing, On R side now CX 4/at last cervix check. 1020 am. A/P: Term IUP SROM Pitocin augmentation.
[2019-04-04] MEDS: Oxytocin 30 units/NS 500 ml 30 UNITS/500 ML IV.SOLN 334 UNITS IV (14:08)
--- NOTE | 2019-04-04 15:16 | PCM.OPRPT ---
Vaginal Delivery Maternal Presentation: Spontaneous Rupture of Membranes Method of Induction: Pitocin Medical Reason for Induction: - - PROM Amniotic Membrane Rupture Type: Spontaneous Rupture of Membrane time: 0430 Amniotic Fluid Description: Clear Final LEO: 04/22/19 Final LEO Source: US <20 weeks Gestational age: 37 Weeks and 3 Days Date of Procedure: 04/04/19 Pre-Operative Diagnosis: IUP @ 37w3d PPROM with augmentation of labor Post-Operative Diagnosis: Surgery/ Procedure Performed: Spontaneous Vaginal Delivery Type of Anesthesia: Epidural Description of Procedure: Pushed well and delivered a vigorous male , OA to MAE; shoulders followed easily with maternal expulsive efforts; infant placed on mothers abdomen, dried and stimulated; cord clamped x 2 and cut by provider; APGARS 9/9; placenta delivered spontaneously, Morro mechanism, intact, 3-vessel cord, central insertion; EBL 200 Raytec and instrument count correct x 2 with RN Presentation: Vertex, MAE Placental Delivery Description: Spontaneous Placenta Disposition: [facility] Cord Vessel Description: 3 Vessels Cord Entanglement: None Estimated Blood Loss: 200 (1 minute): 9 (5 minute): 9 Episiotomy Description: None Laceration: 2nd degree Medications given after delivery: IV Pitocin
--- NOTE | 2019-04-04 15:34 | DCINST_ITS ---
Discharge Diet: No Restrictions Discharge Activity: Return to Normal Activity, No Restrictions, May Drive - Limit long trips, May Shower, May Take a Tub Bath Return to work on:: 05/16/19 May resume sexual activity in: No Restrictions, 4-6 weeks Weight Bearing Status: Weight bearing as tolerated Lifting Restrictions: 15-20 lbs Call your doctor if you observe: Fever of 101 or Higher, Inability to urinate, Inability to have a bowel movement, Using more than one pad per hour, Shortness of breath, Dizziness, Fainting spells, Chest pain, Calf discomfort, Uncontrolled pain Additional Instructions: If you experience any of the following, contact your healthcare provider. * Bleeding that soaks a pad every hour for 2 hours * Fever 100.4 or higher * Unrelieved incision or abdominal pain * Swelling, redness, discharge or bleeding from your incision or episiotomy site * Your incision begins to separate * Problems urinating (including inability to urinate or burning while urinating). * Visual changes * Severe headache * Flu-like symptoms * Pain or redness in one of both of your breasts * Pain, warmth, tenderness or swelling in your legs, especially the calf area * Frequent nausea and vomiting * Symptoms of depression or anxiety If you experience any of the following, call 911 or go to the nearest Emergency Room. * Chest pain * Problems breathing * Seizure activity * Partial or complete paralysis of a body part, slurred speech, weakness or drooping of the face, or a sudden inability to walk or hold your balance Allergies/Adverse Reactions: Allergies adhesive tape Allergy (Verified 04/04/19 07:10) Other scars skin shellfish derived Adverse Reaction (Verified 04/04/19 07:08) Food Allergy Medications to take at Discharge Vits [Prenatabs FA ] 1 tab PO DAILY 04/04/19 Pyridoxine HCl (Vitamin B6) [Vitamin B-6] 25 mg PO DAILY 04/04/19 Please Follow Up With: Coleen Raphael CNM When: 6 Weeks Primary Care Physician: Care Physician,No Primary [Primary Care Provider] - Test Results: Test results from this visit will be discussed in further detail at your follow- up appointment, if applicable. Proposed Discharge Date: 04/06/19
--- NOTE | 2019-04-04 15:37 | DCINST_ITS ---
Discharge Diet: No Restrictions Discharge Activity: Return to Normal Activity, May Drive - Limit long trips for two weeks, May Shower, May Take a Tub Bath Return to work on:: 05/16/19 Weight Bearing Status: Weight bearing as tolerated Lifting Restrictions: 15-20 lbs Call your doctor if you observe: Fever of 101 or Higher, Inability to urinate, Inability to have a bowel movement, Using more than one pad per hour, Shortness of breath, Dizziness, Fainting spells, Chest pain, Increased palpitations (irregular heartbeat), Calf discomfort, Uncontrolled pain Additional Instructions: If you experience any of the following, contact your healthcare provider. * Bleeding that soaks a pad every hour for 2 hours * Fever 100.4 or higher * Unrelieved incision or abdominal pain * Swelling, redness, discharge or bleeding from your incision or episiotomy site * Your incision begins to separate * Problems urinating (including inability to urinate or burning while urinating). * Visual changes * Severe headache * Flu-like symptoms * Pain or redness in one of both of your breasts * Pain, warmth, tenderness or swelling in your legs, especially the calf area * Frequent nausea and vomiting * Symptoms of depression or anxiety If you experience any of the following, call 911 or go to the nearest Emergency Room. * Chest pain * Problems breathing * Seizure activity * Partial or complete paralysis of a body part, slurred speech, weakness or drooping of the face, or a sudden inability to walk or hold your balance Allergies/Adverse Reactions: Allergies adhesive tape Allergy (Verified 04/04/19 07:10) Other scars skin shellfish derived Adverse Reaction (Verified 04/04/19 07:08) Food Allergy Medications to take at Discharge Vits [Prenatabs FA ] 1 tab PO DAILY 04/04/19 Pyridoxine HCl (Vitamin B6) [Vitamin B-6] 25 mg PO DAILY 04/04/19 Primary Care Physician: Care Physician,No Primary [Primary Care Provider] - Test Results: Test results from this visit will be discussed in further detail at your follow- up appointment, if applicable.
[2019-04-04] MEDS: Ibuprofen 600 MG Tablet PO (19:44)
--- NOTE | 2019-04-04 20:00 | NURSING ---
Patient stood up and ambulated to bathroom with standby assist. Gait steady. Performed dorita care. Tolerated well. Denies further needs. Call light in reach.
[2019-04-04 20:11] VITALS: BP 109/65; PULSE 99; RESP 18; TEMP 36.9; O2SAT 96
[2019-04-04] MEDS: Acetaminophen 500 MG Tablet 1000 MG PO (21:50)
[2019-04-04 23:57] VITALS: BP 102/60; PULSE 97; RESP 16; TEMP 36.3; O2SAT 98
[2019-04-05] MEDS: Ibuprofen 600 MG Tablet PO ×3 (03:09→22:52)
[2019-04-05 03:50] VITALS: BP 107/69; PULSE 77; RESP 16; TEMP 36.3; O2SAT 97
[2019-04-05] MEDS: Acetaminophen 500 MG Tablet 1000 MG PO ×2 (06:43→17:43)
--- NOTE | 2019-04-05 07:18 | PN.OBGYN_ITS ---
Subjective: Tolerating diet well, passing gas, denies bowel movement at this time; c/o intermittent pain from LRQ abdominal incision from appendectomy two weeks ago; mild perineal pain, and mild abdominal cramping, well controlled with comfort measures and Ibuprofen; some minor discomfort to lower abdominal striae; going well; desires discharge home at 24 hours if also discharged, but is considering at suggestion of family staying a second day for rest; planning to use NFP for contraception Objective: Sitting up in bed nursing baby AVSS Breasts soft, nipples atraumatic Fundus firm, midline, u/1, lochia scant Lower abdomen with multiple stria that are reddened and irritated Perineal repair well approximated, WEIGHT CONTROL ENGINEER, dry and intact - Physical Exam General: Alert, Oriented x3, Cooperative, No apparent distress HEENT: PERRLA, EOMI Oral: Moist Mucosa Neck: Supple Lungs: Clear to auscultation, Normal air movement Cardiovascular: Regular rate, Regular Rhythm Abdomen: Bowel Sounds Present, Soft, Non Tender, Non-Distended, Passing Flatus Extremities: No edema, Capillary Refill Less than 3 Seconds, No Calf Tenderness Skin: Excoriated Musculoskeletal: No Tenderness to Palpation of Joints or Extremities Neurological: Cranial nerves II-XII grossly intact, Deep Tendon Reflexes 2+/4 and Symmetrical Psych/Mental Status: Normal Affect, Appropriate, Alert and oriented to time, place, person, mood and affect Vital Signs Temp Pulse Resp BP Pulse Ox 97.3 F L 77 16 107/69 97 04/05/19 03:50 04/05/19 03:50 04/05/19 03:50 04/05/19 03:50 04/05/19 03:50 Oxygen Delivery Method Room Air Weight: 172 lb 2.896 oz Body Mass Index (BMI) 34.7 Intake and Output for Last 24 Hours 04/03/19 04/04/19 04/05/19 23:59 23:59 23:59 Intake Total 2211.90 / 2211.90 Output Total 2700 / 2700 Balance -488.10 / -488.10 Laboratory Tests Past 24 Hrs 04/04/19 04/04/19 06:25 06:25 WBC 8.8 RBC 3.92 L Hgb 11.9 L Hct 36.1 L MCV 92.1 MCH 30.4 MCHC 33.0 RDW Std Deviation 43.5 RDW Coeff of Carolyne 13.1 Plt Count 234 MPV 11.2 Immature Gran % (Auto) 0.500 Neut % (Auto) 69.4 Lymph % (Auto) 22.1 [place] % (Auto) 7.1 Eos % (Auto) 0.7 Baso % (Auto) 0.2 Absolute Neuts (auto) 6.1 Absolute Lymphs (auto) 1.93 Nucleated RBC % 0 Blood Type B POSITIVE Antibody Screen NEGATIVE Medical Necessity - Tobacco Use Smoking Status: Never smoker Assessment/Plan All Active Problems Acute appendicitis affecting (Acute) Assessment: AVSS PP Day #1, normal involution, normal course well Plan: Discharge instructions discussed, warning signs, when to call May discharge home at 24 hours if stable and discharged by pediatrics, but strongly encourage staying through PP day #2 Follow up in office in 4 weeks
[2019-04-05 09:01] VITALS: PULSE 66; RESP 16; TEMP 36.2; O2SAT 97
[2019-04-05 12:00] VITALS: BP 113/72; PULSE 76; RESP 16; TEMP 36.9; O2SAT 99
[2019-04-05 16:00] VITALS: BP 112/68; PULSE 105; RESP 16; TEMP 36.3
--- NOTE | 2019-04-05 16:50 | CASEMGMT ---
Social Work Assessment Labor and Delivery Unit Patient's address: [address] [place] [id number] Patient's phone number: [phone] Date of Referral: 04/05/2019 Time of Referral: 1500 Referred By: Dr. Seals; Date of Intervention: 04/05/2019 Time of Intervention: 1650 Reason for Referral: resources History obtained from: medical records and mother of baby (MOB) Charlene Sosa Household composition: MOB, father of baby (FOB) Johan Sosa, and their older children. MOB reports home situation is safe and adequate. Patient's parent/guardian status: MOB is 39 year old femaled, to FOB who is also 37. for 15 years. Parents have 3 children after the of this admission. Children include: Lolly (born 01/2009), Fabio Hanna (born 07/2016) and Gunner (born 04.04.2019). MOB denies any form of abuse in this relationship, though admits that FOB does tend to yell. MOB reports belief that FOB yells due to being raised by yelling. MOB denies feeling unsafe with FOB, denies any physical violence, or safety issues in the home with FOB. Medical History: IJEOMA has delivered 3 pregnancies. are for this started later at 15 weeks but appearing adequate thereafter. IJEOMA did have to have an appendectomy 2 weeks prior to delivery, and was given pain medications related to this surgery. Baby Gunner weighed 6 pounds 5 ounces at . Apgars 9 and 9 at 1 and 5 minutes of life. Educational Status: IJEOMA is able to read, write, and understands what is read. Financial Status: IJEOMA currently stays at home. FODavid works fulltime for [employer] receiving a [employer] commission. Supplies: MOB repots to have all needed supplies include a pack-n-play for sleeping, clothing, diapers, wipes, car seat, and plans to breast feed. Childcare/Caregiver(s): MOB is the primary caregiver. Transportation: NO reported issues. Programs/Agencies Involved: Reports plan to apply for WIC and food stamps. Denies any other agency involvement. Children Services/Legal Issues: Denies past or present involvement. Behavioral Health Issues: Mental Health History: MOB reports belief that experienced depression briefly after first chid was born. MOB reports as a teen did have thoughts of suicide, no plans/intent/or attempts at that time or since teen years. MOB describes having teenage angst. MOB reports did try medicaid for a couple of months but as grew up and relationship issues with parents improved no longer needed the medicine. No mood or anxiety issues reported after second child was born. MOB reports she and FOB have gone to marital counseling in the past through the jain, found this helpful to regroup about communication needs. Substance Use History: MOB denies any present or history of use or abuse. MOB was given opiate analgesics after surgery, just about 2 weeks ago. Denies abuse of prescribed opiates. Family History: None reported. Drug Screens: maternal screen negative on 11.01.2018. Baby's urine is negative and meconium is pending. Family/Social Stressors: MOB reports that FOB is not always the most hands on with care of children, so this often leaves MOB to the primary parenting responsibilities. MOB described FOB as being a person who yells alot, which MOB does not agree with and with MOB reports to worry that will push the children away from FOB. Only one income in the home, and while this is reported to be adequate, MOB indicated that had looked into food card in the past but was denied due to FOB making too much money. Support Systems: MOB reports that FOB is taking 2 weeks off of work to help at home. MOB reports has started to become more assertive with FOB since the appendectomy surgery, letting FOB know when MOB needs some help. MOB reports sometimes FOB helps and other times does not, but that MOB plans to keep trying. MOB reports to have support from jain family, MOB's mother, a cousin's , and a [id number]. MOB reports to feel that support system identified is adequate. ASSESSMENT: Met with MOB alone. MOB cooperative, pleasant and engaging with social work. MOB appearing open with licensed social worker, talking about relationship dynamics with FOB and MOB working on being more assertive in asking for help. MOB reports to feels safe at home, denies any safety concerns for self or for children. MOB open to reapplying for food stamps benefits. youth care worker talked to MOB about maybe thinking about going back to marital counseling, or even trying family counseling with the kids if MOB feels FOB's communication style is impacting the family system. MOB voiced interest in family counseling and asked questions about this. MOB receptive to having licensed social worker bring some counseling options around MOB's home [place] [facility]. MOB reports to feel to have enough support at home going, reports to feel connected with baby, and to have enough supplies. Safe Plan of Care for infant related to substance use: No indication of substance abuse or dependence for this MOB. MOB was prescribed opiates related to pain management after surgery. Baby's drug screen was negative at delivery. PLAN: MOB will go home with baby at discharge. Provided MOB with depression packet this date. Will see MOB one more time to provide information on medicaid and counseling. -NICOLE Natarajan, SURGICAL PROCESSOR
[2019-04-05 20:43] VITALS: BP 120/78; PULSE 83; RESP 16; TEMP 36.3
[2019-04-06 02:00] VITALS: BP 111/73; PULSE 75; RESP 16; TEMP 36.9
--- NOTE | 2019-04-06 06:22 | NURSING ---
Reviewed and agreed with charting by Analy Sanchez RN.
[2019-04-06 07:49] VITALS: BP 92/60; PULSE 72; RESP 16; TEMP 36.3; O2SAT 99
--- NOTE | 2019-04-06 08:21 | PCM.PN.OB ---
Subjective: Tolerating diet well, passing gas, has had bowel movement; c/o intermittent pain from LRQ abdominal incision from appendectomy two weeks ago, well controlled with comfort measures and Ibuprofen; denies perineal pain, reports occasional, mild uterine cramping; some minor discomfort to lower abdominal striae;area of numbness on R hip approx 3' wide x 5 long on R hip, does not affect movement or weight bearing; going well; planning to use NFP for contraception Objective: Sitting up in bed nursing baby AVSS Breasts filling, nipples atraumatic Fundus firm, midline, u/1, lochia scant Lower abdomen with multiple stria that are reddened and irritated, slowly improving RLQ incision from appendectomy well approximated with steri strips, clean dry, no edema or erythema Numbness on L hip, feels dull sensation, does not hinder ambulation Perineal repair well approximated, ALEIDA, dry and intact - Physical Exam General: Alert, Oriented x3, Cooperative, No apparent distress HEENT: PERRLA, EOMI Oral: Moist Mucosa Neck: Supple Lungs: Clear to auscultation, Normal air movement Cardiovascular: Regular rate, Regular Rhythm Abdomen: Bowel Sounds Present, Soft, Non Tender, Non-Distended Extremities: No edema, Capillary Refill Less than 3 Seconds, No Calf Tenderness Musculoskeletal: No Tenderness to Palpation of Joints or Extremities Neurological: Cranial nerves II-XII grossly intact, Deep Tendon Reflexes 2+/4 and Symmetrical Psych/Mental Status: Normal Affect, Appropriate, Alert and oriented to time, place, person, mood and affect Vital Signs Temp Pulse Resp BP Pulse Ox 97.4 F L 72 16 92/60 99 04/06/19 07:49 04/06/19 07:49 04/06/19 07:49 04/06/19 07:49 04/06/19 07:49 Oxygen Delivery Method Room Air Weight: 172 lb 2.896 oz Body Mass Index (BMI) 34.7 Intake and Output for Last 24 Hours 04/04/19 04/05/19 04/06/19 23:59 23:59 23:59 Intake Total 2211.90 / 2211.90 Output Total 2700 / 2700 Balance -488.10 / -488.10 Medical Necessity - Tobacco Use Smoking Status: Never smoker Assessment/Plan All Active Problems Acute appendicitis affecting (Acute) Assessment: PP Day #2, normal involution, normal PP course S/P Appendectomy x 2 weeks well Abdominal striae irritation Skin numbness on R hip, ambulation intact, probable sequelae from epidural Plan: Discharge instructions reviewed, warning signs, when to call; pt planning to use NFP for contraception Discharge home today May use A& D ointment or 1% cortisone cream on striae Call if striae or numbness does not improve or worsens Follow up with surgeon re: appendectomy as scheduled Follow up in office in 6 weeks for PP visit
[2019-04-06] MEDS: Ibuprofen 600 MG Tablet PO (08:57)
[2019-04-06] MEDS: Loratadine 10 MG Tablet 5 MG PO (09:24)
--- NOTE | 2019-04-06 11:35 | NURSING ---
infant placed in car seat per parents; and maternal bracelet numbers match
--- NOTE | 2019-04-06 11:40 | CASEMGMT ---
Social Work Labor and Delivery Unit Met with mother of baby (MOB) prior to discharge. Also in room was father of baby (FOB) Johan. Provided MOB with medicaid application so that MOB can apply for food assistance. Also provided [facility] resource list of social service agencies which includes options for counseling. MOB denies any other needs or concerns for home going. See previous social work documentation from this admission for details of MOB's background. No other services requested or indicated. -CHINMAY Natarajan, STEEL ANALYST
--- NOTE | 2019-04-06 12:39 | NURSING ---
1200 dc to home
== END 2019-04-06 12:05 | disposition home or self-care (01) | DRG 806 ==
PROVIDERS: Admitting Provider Obstetrics & Gynecology; Referring Provider Obstetrics & Gynecology; Visit Provider Obstetrics & Gynecology
DX: O42.013 Preterm premature rupture of membranes, onset of labor within 24 hours of rupture, third trimester (principal); K35.80 Unspecified acute appendicitis; Z37.0 Single live birth; O99.62 Diseases of the digestive system complicating childbirth; O70.1 Second degree perineal laceration during delivery; Z3A.37 37 weeks gestation of pregnancy; Z90.49 Acquired absence of other specified parts of digestive tract
CPT/HCPCS: 59025; 59050; 84112; 85025; 86850; 86900; 86901; 99218; J7120; G0378